=== PATIENT | female | born 1960 | race Caucasian/White ===

== ENCOUNTER 2021-04-21 18:31 | Emergency (ER) | payer OTHER ==
[2021-04-21] MEDS ORDERED: Sodium Chloride 0.9% 1,000 ML IV ONE (18:35)
[2021-04-21] MEDS ORDERED: LORazepam 2 MG/ML SDV IVPUSH ONE (18:36)
[2021-04-21] MEDS ORDERED: Sodium Chloride 0.9% 10 ML Syringe FLUSH PRN (18:36)
--- NOTE | 2021-04-21 18:41 | EDM.PDOC ---
ED HPI GENERAL MEDICAL PROBLEM - General Chief Complaint: Respiratory Problem Stated Complaint: SOB Time Seen by Provider: 04/21/21 18:31 Source of Information: Reports: Patient History Limitations: Reports: No Limitations - History of Present Illness INITIAL COMMENTS - FREE TEXT/NARRATIVE: patient was brought to the ER by her family due to a sudden episode of SOB. She reports that she was on a boat with [place] family - suddenly had an episode of a heartburn - than started breathing fast - unable to catch her breath. no h/o COPD, or CAD. non smoker. had few alcohol drunks earlier but no fluids. no abd pain. she takes Lexapro for anxiety. Onset: Sudden Duration: Minutes: (40) - Related Data Allergies Allergy/AdvReac Type Severity Reaction Status Date / Time No Known Allergies Allergy Verified 04/21/21 18:33 Home Meds: Home Meds Escitalopram Oxalate [Lexapro] 10 mg PO DAILY 04/21/21 [History] ED ROS GENERAL - Review of Systems Review Of Systems: See Below Constitutional: Reports: No Symptoms HEENT: Reports: No Symptoms Respiratory: Reports: Shortness of Breath Cardiovascular: Reports: No Symptoms GI/Abdominal: Reports: No Symptoms : Reports: No Symptoms Musculoskeletal: Reports: No Symptoms Skin: Reports: No Symptoms Neurological: Reports: No Symptoms Psychiatric: Reports: No Symptoms ED EXAM, GENERAL - Physical Exam Exam: See Below Exam Limited By: No Limitations General Appearance: Alert, WD/WN, Anxious Eye Exam: Bilateral Eye: EOMI, PERRL Respiratory/Chest: No Respiratory Distress, Lungs Clear Cardiovascular: Normal Peripheral Pulses, Regular Rate, Rhythm GI/Abdominal: Normal Bowel Sounds, Soft, Non-Tender Extremities: Normal Inspection, Normal Range of Motion Neurological: Alert, Oriented, No Motor/Sensory Deficits Psychiatric: Anxious #1 Interpretation EKG Date: 04/21/21 Rhythm: NSR [place]: Normal P-Wave: Present QRS: Normal ST-T: Normal QT: Normal Comparison: NA - No Prior EKG Course - Vital Signs Last Recorded V/S: Last Vital Signs Temp 36.6 C 04/21/21 18:41 Pulse 91 04/21/21 18:41 Resp 20 04/21/21 18:41 BP 118/75 04/21/21 18:41 Pulse Ox 100 04/21/21 18:41 - Orders/Labs/Meds Orders: Active Orders 24 hr Category Date Time Status EKG Documentation Completion [RC] ASDIRECTED Care 04/21/21 18:37 Active Chest 1V Frontal [CR] Stat Exams 04/21/21 18:36 Taken Sodium Chloride 0.9% [Saline Flush] Med 04/21/21 18:36 Active 10 ml FLUSH ASDIRECTED PRN Saline Lock Insert [OM.PC] Routine Oth 04/21/21 18:36 Ordered Medication Orders Sodium Chloride (Sodium Chloride 0.9% 10 Ml Syringe) 10 ml FLUSH ASDIRECTED PRN PRN Reason: Keep Vein Open Labs: Laboratory Tests 04/21/21 04/21/21 04/21/21 Range/Units 18:30 18:30 18:30 WBC 7.6 (4.0-11.0) K/uL RBC 4.74 (3.80-5.80) M/uL Hgb 13.7 (11.5-16.5) g/dL Hct 40.7 (37.0-47.0) % MCV 86 (76-96) fL MCH 28.9 (27.0-32.0) pg MCHC 33.7 (31.0-35.0) g/dL RDW 13.7 (11.0-16.0) % Plt Count 284 (150-500) K/uL MPV 10.3 H (6.0-10.0) fL D-Dimer, Quantitative 289 (0-400) ng/mL Sodium 144 (136-145) mmol/L Potassium 4.0 (3.5-5.1) mmol/L Chloride 106 (98-107) mmol/L Carbon Dioxide 21.6 (21.0-32.0) mmol/L Anion Gap 20.4 H (5.0-15.0) mmol/L BUN 14 (8-26) mg/dL Creatinine 0.79 (0.55-1.02) mg/dL Est Cr Clr Drug Dosing TNP Estimated GFR (MDRD) > 60 (>60) MLS/MIN BUN/Creatinine Ratio 17.7 (6-25) Glucose 103 H (74-100) mg/dL Calcium 8.9 (8.5-10.1) mg/dL Troponin I < 0.017 (0.000-0.060) ng/mL Meds: Medications Generic Name Dose Route Start Last Admin Trade Name Tejinder PRN Reason Stop Dose Admin Sodium Chloride 10 ml 04/21/21 18:36 Sodium Chloride 0.9% 10 Ml Syringe FLUSH ASDIRECTED PRN Keep Vein Open Discontinued Medications Generic Name Dose Route Start Last Admin Trade Name Tejinder PRN Reason Stop Dose Admin Lorazepam 1 mg 04/21/21 18:36 Lorazepam 2 Mg/Ml Sdv IVPUSH 04/21/21 18:37 ONETIME ONE - Re-Assessments/Exams Free Text/Narrative Re-Assessment/Exam: vitals WNL Sating 100% on RA EKG NSR labs were ordered - CBC, BMP, Ddimer and Trop CXR - WNL 04/21/21 19:26 Labs WNL IV ativan was given - was able to calm down - breathing back to normal IVF bolus patient reports resolution of symptoms and is smiling Departure - Departure Time of Disposition: 19:27 Disposition: Home, Self-Care 01 Condition: Good Clinical Impression: Panic attack, Anxiety - Discharge Information *PRESCRIPTION DRUG MONITORING PROGRAM REVIEWED*: Not Applicable *COPY OF PRESCRIPTION DRUG MONITORING REPORT IN PATIENT BIBI: Not Applicable Instructions: Panic Attack, [id number], Managing Anxiety, Adult Forms: ED Department Discharge Sepsis Event Note (ED) - Focused Exam Vital Signs: Vital Signs Temp Pulse Resp BP Pulse Ox 04/21/21 18:41 36.6 C 91 20 118/75 100 - Problem List & Annotations (1) Anxiety SNOMED Code(s): 24582190 Code(s): F41.9 - ANXIETY DISORDER, UNSPECIFIED Status: Acute Priority: Low (2) Panic attack SNOMED Code(s): 746592226 Code(s): F41.0 - PANIC DISORDER [EPISODIC PAROXYSMAL ANXIETY] Status: Acute Priority: Medium - Problem List Review Problem List Initiated/Reviewed/Updated: Yes - My Orders Last 24 Hours: My Active Orders 04/21/21 18:36 Chest 1V Frontal [CR] Stat Sodium Chloride 0.9% [Saline Flush] 10 ml FLUSH ASDIRECTED PRN Saline Lock Insert [OM.PC] Routine 04/21/21 18:37 EKG Documentation Completion [RC] ASDIRECTED - Assessment/Plan Last 24 Hours: My Active Orders 04/21/21 18:36 Chest 1V Frontal [CR] Stat Sodium Chloride 0.9% [Saline Flush] 10 ml FLUSH ASDIRECTED PRN Saline Lock Insert [OM.PC] Routine 04/21/21 18:37 EKG Documentation Completion [RC] ASDIRECTED Plan: - Take new anxiety medications as needed - Start taking acid reflux - follow up with your PCP in 1-2 weeks as needed
--- NOTE | 2021-04-22 10:01 | CR ---
DATE OF SERVICE: 04/21/21 CLINICAL DATA: SOB AP CHEST: No priors. The heart size is normal. The lungs are clear. No pneumothorax. No pleural effusions. No evidence of acute intrathoracic disease. [id number] [facility]
== END 2021-04-21 19:32 | disposition home or self-care (01) ==
LOC: LB.ED 18:31
DX: F41.0 Panic disorder [episodic paroxysmal anxiety] (principal); Z79.899 Other long term (current) drug therapy
CPT/HCPCS: 36415; 71045; 80048; 84484; 85027; 85379; 93005; 96374; 99285; J2060; J7030